=== PATIENT | male | born 1955 | race Caucasian/White ===

== ENCOUNTER 2017-10-22 23:15 | Inpatient (IN) | payer BC ==
[2017-10-22] MEDS ORDERED: SODIUM CHLORIDE 0.9% 1,000 ML IV STA (23:25)
--- NOTE | 2017-10-22 23:35 | ED ---
General Adult HPI - General Chief complaint: Chest Pain Stated complaint: Chest Pain Time Seen by Provider: 10/22/17 23:25 Source: patient, RN notes reviewed, old records reviewed Mode of arrival: wheelchair Limitations: no limitations - History of Present Illness Initial comments: This is a 62 male to the ED co chest pain, patient has strong and significant history of heart disease, history of CAD, recent travel history as he is recently Gen. from [place]. Patient is still complaining of some mild pain, no shortness of breath occasional calf pain. Leg cramping. denies any recent fevers no cough or congestion hospitalization was around 7 days in total. Patient denies current fevers again, no shortness of breath currently no diaphoresis. - Related Data Home Medications Medication Instructions Recorded Confirmed Aspirin 81 mg PO DAILY 10/23/17 10/23/17 Aspirin 81 mg PO DAILY 10/23/17 10/23/17 Aspirin [Adult Low Dose Aspirin EC] 81 mg PO DAILY 10/23/17 10/23/17 Atorvastatin Calcium [Lipitor] 40 mg PO HS 10/23/17 10/23/17 Carvedilol [Coreg] 3.125 mg PO BID 10/23/17 10/23/17 Docusate Sodium [Dok] 100 mg PO BID 10/23/17 10/23/17 Levothyroxine Sodium 25 mcg PO DAILY 10/23/17 10/23/17 Losartan [Cozaar] 50 mg PO DAILY 10/23/17 10/23/17 Melatonin (Unknown Dose) 1 tab PO HS 10/23/17 10/23/17 Multivitamins, Thera [Multivitamin 1 tab PO DAILY 10/23/17 10/23/17 (formulary)] Pantoprazole Sodium 40 mg PO DAILY 10/23/17 10/23/17 Zinc 50 mg PO 5XD 10/23/17 10/23/17 oxyCODONE HCL/ACETAMINOPHEN 1 tab PO Q4HR PRN 10/23/17 10/23/17 [Percocet 10-325 mg] Allergies Allergy/AdvReac Type Severity Reaction Status Date / Time No Known Allergies Allergy Verified 10/22/17 23:23 Review of Systems ROS Statement: Those systems with pertinent positive or pertinent negative responses have been documented in the HPI. ROS Other: All systems not noted in ROS Statement are negative. Past Medical History Past Medical History: Coronary Artery Disease (CAD), Chest Pain / Angina, Myocardial Infarction ([place]) History of Any Multi-Drug Resistant Organisms: None Reported Past Surgical History: Coronary Bypass/CABG Past Psychological History: No Psychological Hx Reported Smoking Status: Current every day smoker Past Alcohol Use History: Rare Past Drug Use History: None Reported General Exam Limitations: no limitations General appearance: alert, in no apparent distress Head exam: Present: atraumatic, normocephalic, normal inspection Eye exam: Present: normal appearance, PERRL, EOMI. Absent: scleral icterus, conjunctival injection, periorbital swelling ENT exam: Present: normal exam, mucous membranes moist Neck exam: Present: normal inspection. Absent: tenderness, meningismus, lymphadenopathy Respiratory exam: Present: normal lung sounds bilaterally. Absent: respiratory distress, wheezes, rales, rhonchi, stridor Cardiovascular Exam: Present: regular rate, normal rhythm, normal heart sounds. Absent: systolic murmur, diastolic murmur, rubs, gallop, clicks GI/Abdominal exam: Present: soft, normal bowel sounds. Absent: distended, tenderness, guarding, rebound, rigid Extremities exam: Present: normal inspection, full ROM, normal capillary refill. Absent: tenderness, pedal edema, joint swelling, calf tenderness Back exam: Present: normal inspection Neurological exam: Present: alert, oriented X3, CN II-XII intact Psychiatric exam: Present: normal affect, normal mood Skin exam: Present: warm, dry, intact, normal color. Absent: rash Course Vital Signs 10/22/17 10/23/17 10/23/17 23:20 01:39 03:57 Temperature 97.9 F Pulse Rate 83 60 59 L Respiratory 20 16 16 Rate Blood Pressure 152/99 160/95 158/100 O2 Sat by Pulse 99 97 99 Oximetry 10/23/17 10/23/17 10/23/17 06:17 06:41 07:45 Temperature Pulse Rate 84 79 Respiratory 17 17 18 Rate Blood Pressure 137/102 134/83 O2 Sat by Pulse 97 97 Oximetry 10/23/17 08:42 Temperature Pulse Rate 77 Respiratory 18 Rate Blood Pressure 133/87 O2 Sat by Pulse 98 Oximetry - Reevaluation(s) Reevaluation #1: 10/23/17 00:18 Patient spoke with at length regarding risk factors of chest pain, patient states his chest pain is improved although does feel similar to his prior stents that were placed Medical records are attempted to be obtained EKG Findings - EKG Comments: EKG Findings:: EKG shows sinus rhythm rate of 65, [place] 120, QRS 86, QTc 422 Medical Decision Making - Medical Decision Making 62 male the ER for evasive chest pain recurrent chest pain despite prior CABG. Patient has elevated troponin, cardiology made aware. Patient be admitted for anticoagulation cardiology evaluation - Lab Data Result diagrams: 10/23/17 06:38 10/22/17 23:36 Lab Results 10/22/17 10/22/17 10/22/17 Range/Units 23:36 23:36 23:36 WBC 9.0 (3.8-10.6) k/uL RBC 4.55 (4.30-5.90) m/uL Hgb 15.5 (13.0-17.5) gm/dL Hct 45.1 (39.0-53.0) % MCV 99.0 (80.0-100.0) fL MCH 34.0 (25.0-35.0) pg MCHC 34.3 (31.0-37.0) g/dL RDW 12.6 (11.5-15.5) % Plt Count 234 (150-450) k/uL Neutrophils % 69 % Lymphocytes % 17 % Monocytes % 9 % Eosinophils % 3 % Basophils % 0 % Neutrophils # 6.3 (1.3-7.7) k/uL Lymphocytes # 1.5 (1.0-4.8) k/uL Monocytes # 0.8 (0-1.0) k/uL Eosinophils # 0.3 (0-0.7) k/uL Basophils # 0.0 (0-0.2) k/uL PT (9.0-12.0) sec INR (<1.2) APTT (22.0-30.0) sec D-Dimer (<0.60) mg/L FEU Sodium 138 (137-145) mmol/L Potassium 4.1 (3.5-5.1) mmol/L Chloride 106 (98-107) mmol/L Carbon Dioxide 23 (22-30) mmol/L Anion Gap 9 mmol/L BUN 8 L (9-20) mg/dL Creatinine 0.60 L (0.66-1.25) mg/dL Est GFR (CKD-EPI)AfAm >90 (>60 ml/min/1.73 sqM) Est GFR (CKD-EPI)NonAf >90 (>60 ml/min/1.73 sqM) Glucose 101 H (74-99) mg/dL Calcium 9.0 (8.4-10.2) mg/dL Magnesium 1.9 (1.6-2.3) mg/dL Total Bilirubin 0.5 (0.2-1.3) mg/dL AST 116 H (17-59) U/L ALT 54 (21-72) U/L Alkaline Phosphatase 115 (38-126) U/L Total Creatine Kinase 577 H (55-170) U/L CK-MB (CK-2) 44.8 H* (0.0-2.4) ng/mL CK-MB (CK-2) Rel Index 7.8 Troponin I 7.060 H* (0.000-0.034) ng/mL NT-Pro-B Natriuret Pep pg/mL Total Protein 6.9 (6.3-8.2) g/dL Albumin 4.1 (3.5-5.0) g/dL Lipase 43 (23-300) U/L 10/22/17 10/22/17 Range/Units 23:36 23:36 WBC (3.8-10.6) k/uL RBC (4.30-5.90) m/uL Hgb (13.0-17.5) gm/dL Hct (39.0-53.0) % MCV (80.0-100.0) fL MCH (25.0-35.0) pg MCHC (31.0-37.0) g/dL RDW (11.5-15.5) % Plt Count (150-450) k/uL Neutrophils % % Lymphocytes % % Monocytes % % Eosinophils % % Basophils % % Neutrophils # (1.3-7.7) k/uL Lymphocytes # (1.0-4.8) k/uL Monocytes # (0-1.0) k/uL Eosinophils # (0-0.7) k/uL Basophils # (0-0.2) k/uL PT 10.3 (9.0-12.0) sec INR 1.1 (<1.2) APTT 25.1 (22.0-30.0) sec D-Dimer 1.03 H (<0.60) mg/L FEU Sodium (137-145) mmol/L Potassium (3.5-5.1) mmol/L Chloride (98-107) mmol/L Carbon Dioxide (22-30) mmol/L Anion Gap mmol/L BUN (9-20) mg/dL Creatinine (0.66-1.25) mg/dL Est GFR (CKD-EPI)AfAm (>60 ml/min/1.73 sqM) Est GFR (CKD-EPI)NonAf (>60 ml/min/1.73 sqM) Glucose (74-99) mg/dL Calcium (8.4-10.2) mg/dL Magnesium (1.6-2.3) mg/dL Total Bilirubin (0.2-1.3) mg/dL AST (17-59) U/L ALT (21-72) U/L Alkaline Phosphatase (38-126) U/L Total Creatine Kinase (55-170) U/L CK-MB (CK-2) (0.0-2.4) ng/mL CK-MB (CK-2) Rel Index Troponin I (0.000-0.034) ng/mL NT-Pro-B Natriuret Pep 1620 pg/mL Total Protein (6.3-8.2) g/dL Albumin (3.5-5.0) g/dL Lipase (23-300) U/L - Radiology Data Radiology results: report reviewed (Chest x-rays negative for acute disease), image reviewed Critical Care Time Critical Care Time: Yes Total Critical Care Time: 31 Disposition Clinical Impression: Chest pain, Acute non-ST segment elevation myocardial infarction (STEMI) following previous myocardial infarction, Elevated troponin Disposition: ADMITTED IP TO THIS HOSP Condition: Serious Is patient prescribed a controlled substance at d/c from ED?: No
[2017-10-22 23:53] LABS: Basophils % (A) 0 %; Eosinophils # (A) 0.3 k/uL (0-0.7); Eosinophils % (A) 3 %; HCT 45.1 % (39.0-53.0); HGB 15.5 gm/dL (13.0-17.5); Lymphocytes # (A) 1.5 k/uL (1.0-4.8); Lymphocytes % (A) 17 %; MCHC 34.3 g/dL (31.0-37.0); Mean Platelet Volume 7.9; Monocytes # (A) 0.8 k/uL (0-1.0); Monocytes % (A) 9 %; Neutrophils # (A) 6.3 k/uL (1.3-7.7); Neutrophils % (A) 69 %; Platelet Count 234 k/uL (150-450); RBC 4.55 m/uL (4.30-5.90); RDW 12.6 % (11.5-15.5)
[2017-10-23 00:05] LABS: INR 1.1 (<1.2); Prothrombin Time 10.3 sec (9.0-12.0)
[2017-10-23 00:06] LABS: Partial Thromboplastin Time 25.1 sec (22.0-30.0)
--- NOTE | 2017-10-23 00:09 | XR ---
EXAMINATION TYPE: XR chest 2V DATE OF EXAM: 10/22/2017 COMPARISON: NONE HISTORY: Chest pain TECHNIQUE: Frontal and lateral views of the chest are obtained. FINDINGS: Heart and mediastinum are normal. Lungs are clear. Diaphragm is normal. There are sternal wires. There are chest leads. Bony thorax is intact. IMPRESSION: Normal chest.
[2017-10-23 00:10] LABS: D-Dimer 1.03 mg/L FEU (<0.60)
[2017-10-23 00:11] LABS: ALT 54 U/L (21-72); AST 116 U/L (17-59); Albumin 4.1 g/dL (3.5-5.0); Alkaline Phosphatase 115 U/L (38-126); Anion Gap 9 mmol/L; Blood Urea Nitrogen 8 mg/dL (9-20); Carbon Dioxide 23 mmol/L (22-30); Chloride 106 mmol/L (98-107); Glucose 101 mg/dL (74-99); Lipase 43 U/L (23-300); Magnesium 1.9 mg/dL (1.6-2.3); Potassium 4.1 mmol/L (3.5-5.1); Sodium 138 mmol/L (137-145); Total Bilirubin 0.5 mg/dL (0.2-1.3); Total Protein 6.9 g/dL (6.3-8.2)
[2017-10-23] MEDS ORDERED: HEPARIN SODIUM,PORCINE 5,000 UNIT/ML 1 ML VIAL IV ONE (00:58)
[2017-10-23] MEDS ORDERED: HEPARIN SODIUM,PORCINE 5,000 UNIT/ML 1 ML VIAL IV PRN (00:58)
[2017-10-23] MEDS ORDERED: NITROGLYCERIN SL TABS 0.4 MG TAB SUBLINGUAL PRN (00:58)
[2017-10-23] MEDS ORDERED: ASPIRIN 81 MG PO STA (00:58)
[2017-10-23 00:59] LABS: Creatine Kinase MB 44.8 ng/mL (0.0-2.4); Troponin I 7.06 ng/mL (0.000-0.034)
[2017-10-23] MEDS ORDERED: HEPARIN SOD,PORK IN 0.45% NACL 25,000 UNIT in 0.45% NACL 1 500ML.BAG IV SCH (01:00)
--- NOTE | 2017-10-23 01:37 | CT ---
EXAMINATION TYPE: CT angio chest DATE OF EXAM: 10/23/2017 1:02 AM COMPARISON: None HISTORY: R/O PE, Chest pain CT DLP: 253.10 mGycm Automated exposure control for dose reduction was used. CONTRAST: CTA scan of the thorax is performed with IV Contrast, patient injected with 90 mL of Isovue 370, pulm onary embolism protocol. There are 3-D post processed images.. FINDINGS: There is mild linear density at the lung bases consistent with subsegmental atelectasis. There is no pleural effusion. Heart appears normal. There is no pericardial effusion. There is aneurysm of ascend ing aorta that measures 4.5 cm. There is normal contrast opacification of the pulmonary arteries. The re are no filling defects. There is no mediastinal adenopathy. Bony thorax appears intact. There are sternal wires. IMPRESSION: SUBSEGMENTAL ATELECTASIS AT THE LUNG BASES. AORTIC ANEURYSM. NO EVIDENCE OF PULMONARY EMBOLISM.
[2017-10-23] MEDS: MORPHINE SULFATE 4 MG/ML SYRINGE IV PRN ×2 (01:40→06:54)
[2017-10-23 06:54] LABS: Platelet Count 229 k/uL (150-450)
[2017-10-23 07:37] LABS: Creatine Kinase MB 41.4 ng/mL (0.0-2.4); Troponin I 9.21 ng/mL (0.000-0.034)
--- NOTE | 2017-10-23 08:27 | P.CRDCN ---
History of Present Illness Consult date: 10/23/17 Requesting physician: Ephraim Mackay Consult reason: non-Q-wave PR Chief complaint: Chest pain History of present illness: This is a 62-year-old gentleman with known history of coronary artery disease, patient had a myocardial infarction several years ago at which time he had 2 stents placed, most recently the patient was in the [facility] at which time he presented to the hospital there with an acute non-ST elevation myocardial infarction. He underwent a cardiac catheterization with subsequent coronary artery bypass grafting surgery 3. Patient underwent a ANGELES to the LAD , saphenous vein graft to the OM, saphenous vein graft to the PDA. Patient does have history of hyperlipidemia and nicotine dependence, he does state that he continued to smoke after his bypass surgery. Otherwise patient is physically active and exercises regularly. 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 Yesterday morning patient states he began to developed severe midsternal chest pressure and heaviness which reminded him of the symptoms he had when he presented to the hospital in [place]. His initial EKG on presentation here showed a normal sinus rhythm with ST-T wave changes noted in the inferior leads, subsequent EKG showed normal sinus rhythm with inferior ST- T wave changes and ST-T wave changes noted in the anterior lateral leads. Chest x-ray is normal. White blood cell count 9.0, hemoglobin 15.5, platelet count 229. D-dimer 1.03. Sodium 138, potassium 4.1, BUN 8, creatinine 0.6. Magnesium 1.9. Troponins 7.06, 9.2. BNP level 1620.. CTA of the chest was performed which was negative for PE. I pressure on arrival here 152/99, heart rate in the 80s, 99% on room air. Blood pressure this morning 134/80 with a heart rate in the 70s, 97% on 2 and oxygen. At the time of my examination this morning patient denies any chest discomfort, he states that he just received morphine approximately a half hour earlier. Past Medical History Past Medical History: Coronary Artery Disease (CAD), Chest Pain / Angina, Myocardial Infarction ([place]) History of Any Multi-Drug Resistant Organisms: None Reported Past Surgical History: Coronary Bypass/CABG Past Psychological History: No Psychological Hx Reported Smoking Status: Current every day smoker Past Alcohol Use History: Rare Past Drug Use History: None Reported Medications and Allergies Home Medications Medication Instructions Recorded Confirmed Type Aspirin [Adult Low Dose Aspirin EC] 81 mg PO DAILY 10/23/17 10/23/17 History Atorvastatin Calcium [Lipitor] 40 mg PO HS 10/23/17 10/23/17 History Carvedilol [Coreg] 3.125 mg PO BID 10/23/17 10/23/17 History Docusate Sodium [Dok] 100 mg PO BID 10/23/17 10/23/17 History Levothyroxine Sodium 25 mcg PO DAILY 10/23/17 10/23/17 History Melatonin (Unknown Dose) 1 tab PO HS 10/23/17 10/23/17 History Multivitamins, Thera [Multivitamin 1 tab PO DAILY 10/23/17 10/23/17 History (formulary)] Pantoprazole Sodium 40 mg PO DAILY 10/23/17 10/23/17 History Zinc 50 mg PO 5XD 10/23/17 10/23/17 History oxyCODONE HCL/ACETAMINOPHEN 1 tab PO Q4HR PRN 10/23/17 10/23/17 History [Percocet 10-325 mg] Allergies Allergy/AdvReac Type Severity Reaction Status Date / Time No Known Allergies Allergy Verified 10/22/17 23:23 Physical Exam Vitals: Vital Signs Temp Pulse Resp BP Pulse Ox 10/23/17 07:45 79 18 134/83 97 10/23/17 06:41 17 10/23/17 06:17 84 17 137/102 97 10/23/17 03:57 59 L 16 158/100 99 10/23/17 01:39 60 16 160/95 97 10/22/17 23:20 97.9 F 83 20 152/99 99 Intake and Output 10/22/17 10/23/17 10/23/17 22:59 06:59 14:59 Other: Weight 68.039 kg PHYSICAL EXAMINATION: GENERAL: 62-year-old gentleman in no acute distress at the time of my examination HEENT: Head is atraumatic, normocephalic. Pupils equal, round. Sclera anicteric. Conjunctiva are clear. Mucous membranes of the mouth are moist. Neck is supple. There is no elevated jugular venous pressure. No carotid bruit is heard. HEART EXAMINATION: Heart S1, S2 normal. No murmur or gallop heard. CHEST EXAMINATION: Lungs are clear to auscultation and precussion. No chest wall tenderness is noted on palpation or with deep breathing. ABDOMEN: Soft, nontender. Bowel sounds are heard. No organomegaly noted. EXTREMITIES: 2+ peripheral pulses with no evidence of peripheral edema and no calf tenderness noted. NEUROLOGIC patient is awake, alert and oriented ?-3. . Results 10/23/17 06:38 10/22/17 23:36 Cardiac Enzymes 10/22/17 10/22/17 10/23/17 Range/Units 23:36 23:36 06:38 AST 116 H (17-59) U/L CK-MB (CK-2) 44.8 H* 41.4 H* (0.0-2.4) ng/mL Troponin I 7.060 H* 9.210 H* (0.000-0.034) ng/mL Coagulation 10/22/17 10/23/17 Range/Units 23:36 06:38 PT 10.3 (9.0-12.0) sec APTT 25.1 35.8 H (22.0-30.0) sec CBC 10/22/17 10/23/17 Range/Units 23:36 06:38 WBC 9.0 (3.8-10.6) k/uL RBC 4.55 (4.30-5.90) m/uL Hgb 15.5 (13.0-17.5) gm/dL Hct 45.1 (39.0-53.0) % Plt Count 234 229 (150-450) k/uL Comprehensive Metabolic Panel 10/22/17 Range/Units 23:36 Sodium 138 (137-145) mmol/L Potassium 4.1 (3.5-5.1) mmol/L Chloride 106 (98-107) mmol/L Carbon Dioxide 23 (22-30) mmol/L BUN 8 L (9-20) mg/dL Creatinine 0.60 L (0.66-1.25) mg/dL Glucose 101 H (74-99) mg/dL Calcium 9.0 (8.4-10.2) mg/dL AST 116 H (17-59) U/L ALT 54 (21-72) U/L Alkaline Phosphatase 115 (38-126) U/L Total Protein 6.9 (6.3-8.2) g/dL Albumin 4.1 (3.5-5.0) g/dL Current Medications Generic Name Dose Route Start Last Admin Trade Name Tracie PRN Reason Stop Dose Admin Aspirin 325 mg 10/24/17 09:00 Aspirin PO DAILY [facility] Atorvastatin Calcium 80 mg 10/23/17 09:00 Lipitor PO DAILY [facility] Heparin Sodium (Porcine) 0 unit 10/23/17 00:58 Heparin IV Q6HR PRN Low PTT Protocol Sodium Chloride 1,000 mls @ 100 mls/hr 10/22/17 23:25 10/22/17 23:40 Saline 0.9% IV 10/23/17 09:24 100 mls/hr .Q10H STA Administration Heparin Sodium/Sodium Chloride 500 mls @ 16.32 mls/hr 10/23/17 01:00 01:34 25,000 unit/ Sodium Chloride IV 12 units/kg/hr .Q24H ADRIEN 16.32 mls/hr Administration Protocol 12 UNITS/KG/HR Metoprolol Tartrate 25 mg 10/23/17 09:00 Lopressor PO BID [facility] Morphine Sulfate 4 mg 10/23/17 00:58 10/23/17 06:54 Morphine Sulfate (Inj) IV 4 mg Q5M PRN Administration Chest Pain Nitroglycerin 0.4 mg 10/23/17 00:58 Nitrostat SUBLINGUAL Q5M PRN Chest Pain Intake and Output 10/22/17 10/23/17 10/23/17 22:59 06:59 14:59 Other: Weight 68.039 kg 10/23/17 06:38 10/22/17 23:36 EKG Interpretations (text) Initial EKG shows a normal sinus rhythm with ST-T wave changes noted in the inferior leads, subsequent EKG shows normal sinus rhythm with ST-T wave changes in the inferior and lateral leads. Assessment and Plan Plan: Assessment and plan #1 non-ST elevation myocardial infarction #2 known history of coronary artery disease with prior myocardial infarction several years ago at which time patient underwent 2 stent placements, most recently patient had a myocardial infarction last month at which time he underwent coronary artery bypass grafting surgery with a ANGELES to the LAD, saphenous vein graft to the OM, saphenous vein graft to the PDA. #3 nicotine dependence #4 hyperlipidemia #5 hypertension Plan We will obtain a stat echocardiogram with Doppler study. We will put the patient on Lipitor 80 mg now and daily, continue aspirin, IV heparin, metoprolol. Patient has been advised to undergo urgent Cardiac catheterization. The risks and benefits were again explained to the patient in detail and he is willing to proceed. Further recommendations will be based on these findings and the patient's clinical course. DNP note has been reviewed, I agree with a documented findings and plan of care. Patient was seen and examined.
[2017-10-23] MEDS: ATORVASTATIN 80 MG TAB PO SCH (08:38)
[2017-10-23] MEDS: METOPROLOL TARTRATE 25 MG TAB PO SCH ×2 (08:38→21:19)
[2017-10-23] MEDS ORDERED: IV FLUID CONTINUATION 1,000 ML IV ONE (08:56)
[2017-10-23] MEDS ORDERED: ASPIRIN 325 MG TAB PO SCH (09:00)
[2017-10-23] MEDS ORDERED: fentaNYL (PF) 50 MCG/ML 2 ML AMP ONE (09:03)
[2017-10-23] MEDS ORDERED: MIDAZOLAM 2 MG/2 ML VIAL ONE (09:03)
[2017-10-23] MEDS ORDERED: MIDAZOLAM 2 MG/2 ML VIAL IV ONE (09:08)
[2017-10-23] MEDS ORDERED: fentaNYL (PF) 50 MCG/ML 2 ML AMP IV ONE (09:08)
[2017-10-23] MEDS ORDERED: LIDOCAINE 1% INJ 10MG/ML (20 ML MDV) SQ ONE (09:13)
[2017-10-23] MEDS ORDERED: IOPAMIDOL-370 125ML BTL INJ ONE (09:51)
[2017-10-23] MEDS ORDERED: IOPAMIDOL-370 100ML BTL INJ ONE (10:05)
[2017-10-23] MEDS: SODIUM CHLORIDE 0.9% 1,000 ML IV SCH (10:25)
--- NOTE | 2017-10-23 10:37 | CC ---
CARDIAC CATHETERIZATION REPORT Mr. Carreon is a 62-year-old gentleman who came to the hospital with chest pain. Patient had inferior lateral T-wave inversions. Initial troponin was 7, second troponin was 9 suggestive of a non-Q-wave myocardial infarction. This patient had a recent coronary artery bypass surgery in [place]. Patient had a ANGELES graft to the LAD and vein graft to OM and the right coronary artery. In view of the non-Q-wave myocardial infarction, patient was recommended to have a cardiac catheterization for definitive diagnosis. PROCEDURE: Right groin was prepped and draped in the usual manner and the skin was infiltrated with 2% Xylocaine. The right femoral artery was entered using Seldinger technique, a #6- [place] sheath was placed in. Selective coronary angiography was then performed in multiple projections and the left ventricular pressures were obtained. Patient tolerated the procedure well. Sheath was sutured. Moderate sedation was used, total sedation time was 38 minutes. HEMODYNAMICS: Left ventricular end-diastolic pressure is 12 mmHg prior to angiography. No gradient is noted across the aortic valve. SELECTIVE CORONARY ANGIOGRAPHY: Left main coronary artery has a distal stenosis of 80%. LAD is a good caliber blood vessel and gives rise to several septal branches. The mid LAD has an area of 80% stenosis. The distal LAD is totally occluded with competitive flow noted in the distal LAD. There are two good-sized diagonal branches arising from the proximal portion of the LAD. The circumflex coronary artery is a good caliber blood vessel and uses a small size obtuse marginal branch. The small size obtuse marginal branch is totally occluded and then the circumflex continues into the AV groove. Right coronary artery is totally occluded in its mid portion. There is a feeling of distal right coronary artery via collaterals from the LAD. The ANGELES graft to the distal LAD is patent. There is no evidence of any retrograde flow into the proximal or mid LAD. The saphenous vein graft to the obtuse marginal branch is occluded. Saphenous vein graft to the right coronary artery is patent with sluggish flow and there is filling of the PDA branch. RECOMMENDATIONS: We will review the films with Dr. Reyna Carmen and consider possible stent to the distal left main. It is considered to be technically high-risk angioplasty. This was discussed with the patient. MMODL / IJN: [id number] /
--- NOTE | 2017-10-23 11:31 | ECHOF ---
Referral Reason:elevTrop MEASUREMENTS -------- HEIGHT: 165.1 cm WEIGHT: 68.0 kg BP: 137/102 RVIDd: 2.9 cm (< 3.3) IVSd: 1.3 cm (0.6 - 1.1) LVIDd: 4.2 cm (3.9 - 5.3) LVPWd: 1.4 cm (0.6 - 1.1) IVSs: 1.7 cm LVIDs: 3.5 cm LVPWs: 1.4 cm LA Diam: 2.9 cm (2.7 - 3.8) LAESV Index (A-L): 27.26 ml/m Ao Diam: 3.9 cm (2.0 - 3.7) AV Cusp: 2.0 cm (1.5 - 2.6) LA Diam: 3.8 cm (2.7 - 3.8) MV EXCURSION: 15.294 mm (> 18.000) MV EF SLOPE: 52 mm/s (70 - 150) EPSS: 0.5 cm MV E Ventura: 0.39 m/s MV DecT: 289 ms MV A [place]: 0.54 m/s MV E/A Ratio: 0.72 RAP: 5.00 mmHg RVSP: 16.46 mmHg FINDINGS -------- Sinus rhythm. This was a technically adequate study. The left ventricular size is normal. There is mild concentric left ventricular hypertrophy. Overa ll left ventricular systolic function is moderately impaired with, an EF between 35 - 40 %. Apical septum LV wall motion is hypokinetic. Fowler Hypokinesis. The right ventricle is normal in size. The left atrial size is normal. The right atrial size is normal. The aortic valve is trileaflet, and appears structurally normal. No aortic stenosis or regurgitation. Mild mitral annular calcification present. Mild mitral regurgitation is present. Mild tricuspid regurgitation present. There is no evidence of pulmonary hypertension. The right v entricular systolic pressure, as measured by Doppler, is 16.46mmHg. There is no pulmonic regurgitation present. The aortic root size is normal. There is no pericardial effusion. CONCLUSIONS -------- 1. The left ventricular size is normal. 2. There is mild concentric left ventricular hypertrophy. 3. Overall left ventricular systolic function is moderately impaired with, an EF between 35 - 40 %. 4. Apical septum LV wall motion is hypokinetic. 5. Fowler Hypokinesis. 6. The right ventricle is normal in size. 7. The left atrial size is normal. 8. The right atrial size is normal. 9. The aortic valve is trileaflet, and appears structurally normal. No aortic stenosis or regurgitati on. 10. Mild mitral annular calcification present. 11. Mild mitral regurgitation is present. 12. Mild tricuspid regurgitation present. 13. There is no evidence of pulmonary hypertension. 14. The right ventricular systolic pressure, as measured by Doppler, is 16.46mmHg. 15. There is no pulmonic regurgitation present. 16. The aortic root size is normal. 17. There is no pericardial effusion. STRAP CUTTING MACHINE OPERATOR: Vivian Ibarra RDCS
[2017-10-23 12:17] LABS: Troponin I 9.51 ng/mL (0.000-0.034)
--- NOTE | 2017-10-23 12:58 | PN ---
PROGRESS NOTE This is a 62-year-old gentleman who underwent aortocoronary bypass surgery in September of this year in [place]. Prior to that, he had a stenting performed of the RCA a few years ago. The patient still smokes and does consume alcohol on a regular basis. He presented here with chest pain and had a non-ST elevation CT. Cardiac cath Dr. Melissa Funk revealed that his ANGELES to LAD was patent, but there was only antegrade flow in the ANGELES and it was not filling 2 major diagonal branches. The patient has a 70% to 80% left main calcified lesion. The RCA is totally occluded. The PDA branch of RCA has been grafted and the graft appears to be patent. The patient has a vein graft to the obtuse marginal that is occluded but the [place] obtuse marginal appears to be relatively small vessel. His ejection fraction is about 35% to 40% with anterior hypokinesia in the LAD distribution. This patient has a high-risk feature with decreased LV function and multivessel disease including left main disease, although there is partial protection to the left main with a distal LAD being grafted. I am recommending that we will not do any intervention of the vein graft to the obtuse marginal, but instead he will need a left main stenting which because the 2 diagonal branches and the circumflex is now compromised in terms of myocardial perfusion given the 70% or 80% distal left main lesion that is calcified. I explained this to the patient in great detail with his neighbor being present there. I suggested that we will do a bifurcation stenting either a provisional stenting or a crush procedure. He will need 2 stents both in LAD and circumflex probably as well. I will perform the procedure with an Impella support and this will be performed on at 10:30 am. The rationale involved high risk, options were explained to the patient in great detail. He understands all details and wishes to proceed. I have counseled him regarding the need to refrain from smoking and we will add losartan 50 mg daily to his regimen and continue all his other medications. Prognosis remains guarded. The patient has been counseled regarding the need to quit smoking. He is fully aware of the risk of infection, bleeding, vascular injury, abrupt re-closure, and possibility of as well as the higher risk related to a vascular access from the Impella placement. Patient understands all details and wishes to proceed with the procedure. MMODL / IJN: [id number] /
[2017-10-23] MEDS ORDERED: HYDROcodone/APAP 5-325MG 1 EACH TAB PO PRN (15:04)
[2017-10-23] MEDS ORDERED: HYDROcodone/APAP 5-325MG 1 EACH TAB ONE (15:05)
[2017-10-23 18:10] LABS: Glucose,Whole Blood 116 mg/dL (75-99)
[2017-10-23] MEDS: LOSARTAN 50 MG TAB PO SCH (21:18)
[2017-10-23] MEDS: ENOXAPARIN 80 MG/0.8 ML SYRINGE SQ SCH (21:18)
--- NOTE | 2017-10-23 23:16 | P.HPIM ---
History of Present Illness H&P Date: 10/23/17 Chief Complaint: Chest pain Patient is a 62-year-old male with a known history of smoking and coronary artery disease with stent placement about [address]. Cardiac catheterization showed triple-vessel disease and patient is status post coronary artery bypass graft done on September 2017 at [place], [place]. Patient drove back to [place] on last . Patient developed chest pain again yesterday morning and seems like similar chest heaviness when he presented to hospital in [place]. Patient came to ER for further evaluation. Denied any associated nausea or vomiting. Patient does have shortness of breath associated with chest pain. Denied any radiation. No headache or dizziness. Patient did have diaphoresis otherwise. EKG showed normal sinus rhythm with ST-T wave changes noted in the inferior leads. Chest x-ray showed no acute cardiopulmonary process. D-dimer 1.03. CT angiogram of the chest showed no evidence of pulmonary embolism. Troponin 7.060 Patient continues to smoke otherwise. He was seen by cardiology and was taken to cardiac catheterization. Review of Systems Constitutional: Patient denies any fever or chills . No generalized weakness or weight loss. Abdomen: Patient denied nausea vomiting and diarrhea and abdominal pain. Cardiovascular: Patient does have chest pain and short of breath no palpitations. Respiratory: patient denied any cough is from production. No shortness of breath Neurologic: Patient denied any numbness or tingling headache. Musculoskeletal: Patient denies any complaints of joint swelling or deformity. Skin: Negative Psychiatric: Negative Endocrine: No heat or cold intolerance. No recent weight gain. Genitourinary: No dysuria or hematuria. All other 14 point ROS negative except the above Past Medical History Past Medical History: Coronary Artery Disease (CAD), Chest Pain / Angina, Myocardial Infarction (CT) History of Any Multi-Drug Resistant Organisms: None Reported Past Surgical History: Coronary Bypass/CABG Past Psychological History: No Psychological Hx Reported Smoking Status: Current every day smoker Past Alcohol Use History: Rare Past Drug Use History: None Reported Medications and Allergies Home Medications Medication Instructions Recorded Confirmed Type Aspirin 81 mg PO DAILY 10/23/17 10/23/17 History Aspirin 81 mg PO DAILY 10/23/17 10/23/17 History Aspirin [Adult Low Dose Aspirin EC] 81 mg PO DAILY 10/23/17 10/23/17 History Atorvastatin Calcium [Lipitor] 40 mg PO HS 10/23/17 10/23/17 History Carvedilol [Coreg] 3.125 mg PO BID 10/23/17 10/23/17 History Docusate Sodium [Dok] 100 mg PO BID 10/23/17 10/23/17 History Levothyroxine Sodium 25 mcg PO DAILY 10/23/17 10/23/17 History Losartan [Cozaar] 50 mg PO DAILY 10/23/17 10/23/17 History Melatonin (Unknown Dose) 1 tab PO HS 10/23/17 10/23/17 History Multivitamins, Thera [Multivitamin 1 tab PO DAILY 10/23/17 10/23/17 History (formulary)] Pantoprazole Sodium 40 mg PO DAILY 10/23/17 10/23/17 History Zinc 50 mg PO 5XD 10/23/17 10/23/17 History oxyCODONE HCL/ACETAMINOPHEN 1 tab PO Q4HR PRN 10/23/17 10/23/17 History [Percocet 10-325 mg] Allergies Allergy/AdvReac Type Severity Reaction Status Date / Time No Known Allergies Allergy Verified 10/22/17 23:23 Physical Exam Vitals: Vital Signs Temp Pulse Pulse Resp BP BP Pulse Ox 10/23/17 10:54 55 L 18 146/77 99 10/23/17 08:42 77 18 133/87 98 10/23/17 07:45 79 18 134/83 97 10/23/17 06:41 17 10/23/17 06:17 84 17 137/102 97 10/23/17 03:57 59 L 16 158/100 99 10/23/17 01:39 60 16 160/95 97 10/22/17 23:20 97.9 F 83 20 152/99 99 Intake and Output 10/22/17 10/23/17 10/23/17 22:59 06:59 14:59 Intake Total 100 Output Total 300 Balance -200 Intake: IV 100 Sodium Chloride 0.9% 1, 0 000 ml @ 100 mls/hr IV . Q10H STA Rx#:[id number] Output: Urine 300 Other: Weight 68.039 kg PHYSICAL EXAMINATION: Patient is lying in the bed comfortably, no acute distress, awake alert and oriented.. HEENT: Normocephalic. Neck is supple. Pupils reactive. Nostrils clear. Oral cavity is moist. Ears reveal no drainage. Neck reveals no JVD, carotid bruits, or thyromegaly. CHEST EXAMINATION: Trachea is central. Symmetrical expansion. Lung camp clear to auscultation and percussion. CARDIAC: Normal S1, S2 with no gallops. No murmurs ABDOMEN: Soft. Bowel sounds normal. No organomegaly. No abdominal bruits. Extremities: reveal no edema. No clubbing or cyanosis Neurologically awake, alert, oriented x3 with well-coordinated movements. No focal deficits noted Skin: No rash or skin lesions. Psychiatric: Coperative. Nonsuicidal Musculoskeletal: No joint swelling or deformity. Normal range of motion. Results CBC & Chem 7: 10/23/17 06:38 10/22/17 23:36 Labs: Abnormal Lab Results - Last 24 Hours (Table) 10/22/17 10/22/17 10/22/17 Range/Units 23:36 23:36 23:36 APTT (22.0-30.0) sec D-Dimer 1.03 H (<0.60) mg/L FEU BUN 8 L (9-20) mg/dL Creatinine 0.60 L (0.66-1.25) mg/dL Glucose 101 H (74-99) mg/dL AST 116 H (17-59) U/L Total Creatine Kinase 577 H (55-170) U/L CK-MB (CK-2) 44.8 H* (0.0-2.4) ng/mL Troponin I 7.060 H* (0.000-0.034) ng/mL 10/23/17 10/23/17 Range/Units 06:38 06:38 APTT 35.8 H (22.0-30.0) sec D-Dimer (<0.60) mg/L FEU BUN (9-20) mg/dL Creatinine (0.66-1.25) mg/dL Glucose (74-99) mg/dL AST (17-59) U/L Total Creatine Kinase 427 H (55-170) U/L CK-MB (CK-2) 41.4 H* (0.0-2.4) ng/mL Troponin I 9.210 H* (0.000-0.034) ng/mL Thrombosis Risk Factor Assmnt - DVT/VTE Prophylaxis DVT/VTE Prophylaxis: Pharmacologic Prophylaxis ordered Assessment and Plan Assessment: Acute non-ST elevated CT Chest pain Recent CT status post coronary artery bypass graft in September 2017 History of coronary artery disease with stent placement 8 years ago Hypertension Hyperlipidemia and nicotine dependence Plan: Patient was started on heparin drip. Continue with aspirin, statins and metoprolol. Patient underwent cardiac catheterization and report is pending at this time. 2-D echocardiogram was ordered. Further recommendations based on the critical course. Continue with telemetry monitoring. Time with Patient: Greater than 30
[2017-10-24] MEDS: SODIUM CHLORIDE 0.9% 1,000 ML IV SCH ×2 (02:00→09:41)
[2017-10-24 05:38] LABS: Basophils % (A) 0 %; Eosinophils # (A) 0.1 k/uL (0-0.7); Eosinophils % (A) 1 %; HCT 42.4 % (39.0-53.0); HGB 14.4 gm/dL (13.0-17.5); Lymphocytes # (A) 1.4 k/uL (1.0-4.8); Lymphocytes % (A) 15 %; MCH 33.8 pg (25.0-35.0); MCV 99.5 fL (80.0-100.0); Mean Platelet Volume 7.8; Monocytes # (A) 0.8 k/uL (0-1.0); Monocytes % (A) 9 %; Neutrophils # (A) 6.6 k/uL (1.3-7.7); Neutrophils % (A) 73 %; Platelet Count 194 k/uL (150-450); RBC 4.26 m/uL (4.30-5.90); RDW 12.6 % (11.5-15.5)
[2017-10-24 05:54] LABS: Anion Gap 6 mmol/L; Blood Urea Nitrogen 11 mg/dL (9-20); Calcium 8.5 mg/dL (8.4-10.2); Carbon Dioxide 24 mmol/L (22-30); Chloride 104 mmol/L (98-107); Cholesterol 98 mg/dL (<200); Glucose 98 mg/dL (74-99); HDL Cholesterol 33 mg/dL (40-60); LDL Cholesterol,Calculated 53 mg/dL (0-99); Magnesium 1.9 mg/dL (1.6-2.3); Potassium 4.3 mmol/L (3.5-5.1); Sodium 134 mmol/L (137-145); Triglycerides 62 mg/dL (<150)
[2017-10-24 07:05] VITALS: BMI 24.6
[2017-10-24] MEDS ORDERED: ASPIRIN 81 MG PO SCH (09:00)
[2017-10-24] MEDS ORDERED: ASPIRIN 325 MG TAB PO SCH (09:00)
[2017-10-24 09:23] VITALS: TEMP 98.4
[2017-10-24] MEDS: LOSARTAN 50 MG TAB PO SCH (09:41)
[2017-10-24] MEDS: ENOXAPARIN 80 MG/0.8 ML SYRINGE SQ SCH (09:41)
[2017-10-24] MEDS: ATORVASTATIN 80 MG TAB PO SCH (09:41)
[2017-10-24] MEDS: METOPROLOL TARTRATE 25 MG TAB PO SCH (09:42)
[2017-10-24 16:07] VITALS: BP 99/63; PULSE 78; RESP 16
--- NOTE | 2017-10-24 19:50 | PN ---
PROGRESS NOTE This patient was admitted with acute non ST-segment elevation myocardial infarction. Patient is status post coronary artery bypass surgery. The patient was found to have a saphenous vein graft to the obtuse marginal branch closed. Patient has an about 80% distal left main stenosis which requires stenting. Discussed with the patient. Patient wishes to be transferred to the tertiary care center. In view of the complex and high risk angioplasty, we will make arrangements for patient to be transferred to the [facility]. MMMIGUE / CARYN: [id number] /
== END 2017-10-24 16:41 | disposition short-term general hospital (02) | DRG 281 ==
LOC: EC 23:15 → 6ICU 10-23 01:00 → 6SEL 10-23 01:20 → 6ICU 10-23 10:18
PROVIDERS: ADMIT Hospitalist; ATTEND Hospitalist
PROC: B2131ZZ Fluoroscopy of Multiple Coronary Artery Bypass Grafts using Low Osmolar Contrast (ICD-10-PCS; 2017-10-23)
PROC: B2181ZZ Fluoroscopy of Left Internal Mammary Bypass Graft using Low Osmolar Contrast (ICD-10-PCS; 2017-10-23)
PROC: B2111ZZ Fluoroscopy of Multiple Coronary Arteries using Low Osmolar Contrast (ICD-10-PCS; 2017-10-23)
PROC: 4A023N7 Measurement of Cardiac Sampling and Pressure, Left Heart, Percutaneous Approach (ICD-10-PCS; principal; 2017-10-23 08:50)
DX: I21.4 Non-ST elevation (NSTEMI) myocardial infarction (principal); I25.810 Atherosclerosis of coronary artery bypass graft(s) without angina pectoris; E78.5 Hyperlipidemia, unspecified; F17.210 Nicotine dependence, cigarettes, uncomplicated; I10 Essential (primary) hypertension; I25.2 Old myocardial infarction; Z79.82 Long term (current) use of aspirin; Z79.899 Other long term (current) drug therapy; Z79.890 Hormone replacement therapy; Z95.1 Presence of aortocoronary bypass graft; Z95.5 Presence of coronary angioplasty implant and graft
CPT/HCPCS: 36415; 71046; 71275; 80048; 80053; 80061; 82550; 82553; 83690; 83735; 83880; 84484; 85025; 85049; 85379; 85610; 85730; 93005; 93306; 93459; 96361; 96365; 96366; 96375; 96376; 99291

== ENCOUNTER → 2018-02-01 | Outpatient (CLI) | payer BC ==
--- NOTE | 2018-02-01 10:59 | CT ---
EXAMINATION TYPE: CT angio chest DATE OF EXAM: 02/01/2018 COMPARISON: 10/23/2017 HISTORY: Follow up AAA CT DLP: 428.3 mGycm. Automated Exposure Control for Dose Reduction was Utilized. CONTRAST: CTA scan of the thorax is performed without and with IV Contrast, patient injected with 100 mL of Iso justine 370, pulmonary embolism protocol. 3-D and MIP Images are created on CT scanner and reviewed. FINDINGS: LUNGS: Degree of left basilar peripheral atelectasis has improved in the interim with two 3 mm nodule s remaining at the left lung base on series 6 image 55 and 54. There is minimal bibasilar subsegmenta l dependent atelectasis is also seen. Probable elongated left intrafissural lymph node is seen on ser ies 7 image 36.. There is no pleural effusion or pneumothorax seen. The tracheobronchial tree is p atent. MEDIASTINUM: There is satisfactory enhancement of the pulmonary artery and its branches, there is no CT evidence for pulmonary embolism. There are no greater than 1 cm hilar or mediastinal lymph nodes. Post CABG changes are seen of the chest with [place] coronary calcifications also present. No pericar dial effusion is seen. Heart is upper limits of normal in size. OTHER: 1.2 cm right upper pole renal cyst is identified. Descending duodenal diverticulum is also pre sent. Splenules are seen adjacent to the [place] splenic hilum. Minimal multilevel degenerative change s of the thoracic spine are seen. Moderate calcific atheromatous plaquing of the thoracic aorta and m oderate to severe calcific and noncalcific plaquing of the visualized superior portion of the abdomin al aorta are noted. IMPRESSION: 1. The previously seen ascending thoracic aortic aneurysmal dilatation may have related to obliquity on the prior exam and not redemonstrated on today's examination. Greatest caliber of the ascending th oracic aorta measures up to 3.8 cm, within normal limits and aortic root measures up to 3.6 cm, also within normal limits. No enlargement of the main pulmonary artery or descending thoracic aorta is see n. 2. Improved degree of left basilar atelectasis with two underlying 3 mm pulmonary nodules now seen. F ollow-up CT thorax is recommended in 12 months to assess for stability and nodules of this size.
== END | disposition home or self-care (01) ==
LOC: RADCTMAIN 07:23
PROVIDERS: ATTEND Internal Medicine Cardiovascular Disease
DX: J98.11 Atelectasis (principal); R91.8 Other nonspecific abnormal finding of lung field
CPT/HCPCS: 71275; Q9967

== ENCOUNTER 2019-06-08 10:19 | Emergency (ER) | payer BC, MEDICARE ==
--- NOTE | 2019-06-08 10:47 | XR ---
EXAMINATION TYPE: XR chest 1V portable DATE OF EXAM: 06/08/2019 HISTORY: cough. REFERENCE: Previous study dated 10/22/2017. FINDINGS: There has been a midline sternotomy. Lung volumes are prominent. The heart is mildly enlarged. The lungs are clear. Pleural space are pelon r. IMPRESSION: 1. COPD. 2. CARDIOMEGALY.
--- NOTE | 2019-06-08 10:56 | ED ---
General Adult HPI - General Chief complaint: Shortness of Breath Stated complaint: SOB Time Seen by Provider: 06/08/19 10:29 Source: patient Mode of arrival: ambulatory Limitations: no limitations - History of Present Illness Initial comments: Dictation was produced using [employer] dictation software. please excuse any grammatical, word or spelling errors. Chief Complaint: 64-year-old male past medical history of coronary artery disease, cardiac bypass, myocardial infarction presents with chest pain sinus pressure and cough. History of Present Illness: 64-year-old male presents with chest pain shortness of breath and cough. Patient states his symptoms began yesterday. Does complain of anterior pleuritic chest pain. States that his pain is severe when he takes a deep breath. Denies any radiation of symptoms. He states his pain is not severe. Patient is history of coronary artery disease status post bypass grafting and stent placement. Denies any fever, chills or night sweats. He does have a mild cough that is dry and nonproductive. Denies any constitutional symptoms. The ROS documented in this emergency department record has been reviewed and confirmed by me. Those systems with pertinent positive or negative responses have been documented in the HPI. All other systems are other negative and/or noncontributory. PHYSICAL EXAM: General Impression: Alert and oriented x3, not in acute distress HEENT: Normocephalic atraumatic, extra-ocular movements intact, pupils equal and reactive to light bilaterally, mucous membranes moist. Cardiovascular: Heart regular rate and rhythm, S1&S2 audible, no murmurs, rubs or gallops Chest: No acute respiratory distress, no retractions, able to complete full sentences Abdomen: Bowel sounds present, abdomen soft, non-tender, non-distended, no organomegaly Musculoskeletal: Pulses present and equal in all extremities, no peripheral edema Motor: no focal deficits noted Neurological: CN II-XII grossly intact, no focal motor or sensory deficits noted Skin: Intact with no visualized rashes Psych: Normal affect and mood ED course: 64-year-old male presents with atypical chest pain. He also has component of respiratory symptoms. Vital signs upon arrival are within a cceptable limits. Laboratory evaluation obtained. CBC unremarkable. D-dimer 0.31. Metabolic panel is negative. Chest x-ray shows no acute processes. Patient's pain is atypical. No concern for ACS. Patient is worried about Covid 19. Discussed with patient that our administration does not want us performing Covid 19 testing on stable patient's. He is stable for discharge. He does not show any signs of respiratory distress or fever. Return parameters discussed. Patient advised to follow-up with his primary care physician. Patient is instructed to quarantine for 14 days. EKG interpretation: Ventricular rate 70, normal sinus rhythm,. Interval 134, QRS 90, QTC 421. No CA prolongation, no QTC prolongation, no ST or T-wave changes noted. EKG compared to 10/23/2017 showing no changes. Overall, this EKG is unremarkable - Related Data Home Medications Medication Instructions Recorded Confirmed Aspirin 81 mg PO DAILY 10/23/17 10/23/17 Aspirin 81 mg PO DAILY 10/23/17 10/23/17 Aspirin [Adult Low Dose Aspirin EC] 81 mg PO DAILY 10/23/17 10/23/17 Atorvastatin Calcium [Lipitor] 40 mg PO HS 10/23/17 10/23/17 Carvedilol [Coreg] 3.125 mg PO BID 10/23/17 10/23/17 Docusate Sodium [Dok] 100 mg PO BID 10/23/17 10/23/17 Levothyroxine Sodium 25 mcg PO DAILY 10/23/17 10/23/17 Losartan [Cozaar] 50 mg PO DAILY 10/23/17 10/23/17 Melatonin (Unknown Dose) 1 tab PO HS 10/23/17 10/23/17 Multivitamins, Thera [Multivitamin 1 tab PO DAILY 10/23/17 10/23/17 (formulary)] Pantoprazole Sodium 40 mg PO DAILY 10/23/17 10/23/17 Zinc 50 mg PO 5XD 10/23/17 10/23/17 oxyCODONE HCL/ACETAMINOPHEN 1 tab PO Q4HR PRN 10/23/17 10/23/17 [Percocet 10-325 mg] Allergies Allergy/AdvReac Type Severity Reaction Status Date / Time No Known Allergies Allergy Verified 10/22/17 23:23 Review of Systems ROS Statement: Those systems with pertinent positive or pertinent negative responses have been documented in the HPI. ROS Other: All systems not noted in ROS Statement are negative. Past Medical History Past Medical History: Coronary Artery Disease (CAD), Chest Pain / Angina, Myocardial Infarction ([place]) Last Myocardial Infarction Date:: 10/23/17 History of Any Multi-Drug Resistant Organisms: None Reported Past Surgical History: Coronary Bypass/CABG, Heart Catheterization With Stent Past Psychological History: No Psychological Hx Reported Smoking Status: Current every day smoker Past Alcohol Use History: Rare Past Drug Use History: None Reported General Exam Limitations: no limitations Course Vital Signs 06/08/19 06/08/19 10:24 10:26 Temperature 98.7 F Pulse Rate 89 Respiratory 18 20 Rate Blood Pressure 165/95 O2 Sat by Pulse 100 Oximetry Medical Decision Making - Lab Data Result diagrams: 06/08/19 10:57 06/08/19 10:57 Lab Results 06/08/19 06/08/19 06/08/19 Range/Units 10:57 10:57 10:57 WBC 10.4 (3.8-10.6) k/uL RBC 4.17 L (4.30-5.90) m/uL Hgb 14.5 (13.0-17.5) gm/dL Hct 42.6 (39.0-53.0) % MCV 102.3 H (80.0-100.0) fL MCH 34.7 (25.0-35.0) pg MCHC 33.9 (31.0-37.0) g/dL RDW 11.8 (11.5-15.5) % Plt Count 156 (150-450) k/uL Neutrophils % 74 % Lymphocytes % 14 % Monocytes % 8 % Eosinophils % 2 % Basophils % 0 % Neutrophils # 7.7 (1.3-7.7) k/uL Lymphocytes # 1.5 (1.0-4.8) k/uL Monocytes # 0.8 (0-1.0) k/uL Eosinophils # 0.2 (0-0.7) k/uL Basophils # 0.0 (0-0.2) k/uL D-Dimer (<0.60) mg/L FEU Sodium 135 L (137-145) mmol/L Potassium 4.1 (3.5-5.1) mmol/L Chloride 102 (98-107) mmol/L Carbon Dioxide 24 (22-30) mmol/L Anion Gap 9 mmol/L BUN 12 (9-20) mg/dL Creatinine 0.68 (0.66-1.25) mg/dL Est GFR (CKD-EPI)AfAm >90 (>60 ml/min/1.73 sqM) Est GFR (CKD-EPI)NonAf >90 (>60 ml/min/1.73 sqM) Glucose 104 H (74-99) mg/dL Calcium 8.6 (8.4-10.2) mg/dL Troponin I <0.012 (0.000-0.034) ng/mL 06/08/19 Range/Units 10:57 WBC (3.8-10.6) k/uL RBC (4.30-5.90) m/uL Hgb (13.0-17.5) gm/dL Hct (39.0-53.0) % MCV (80.0-100.0) fL MCH (25.0-35.0) pg MCHC (31.0-37.0) g/dL RDW (11.5-15.5) % Plt Count (150-450) k/uL Neutrophils % % Lymphocytes % % Monocytes % % Eosinophils % % Basophils % % Neutrophils # (1.3-7.7) k/uL Lymphocytes # (1.0-4.8) k/uL Monocytes # (0-1.0) k/uL Eosinophils # (0-0.7) k/uL Basophils # (0-0.2) k/uL D-Dimer 0.31 (<0.60) mg/L FEU Sodium (137-145) mmol/L Potassium (3.5-5.1) mmol/L Chloride (98-107) mmol/L Carbon Dioxide (22-30) mmol/L Anion Gap mmol/L BUN (9-20) mg/dL Creatinine (0.66-1.25) mg/dL Est GFR (CKD-EPI)AfAm (>60 ml/min/1.73 sqM) Est GFR (CKD-EPI)NonAf (>60 ml/min/1.73 sqM) Glucose (74-99) mg/dL Calcium (8.4-10.2) mg/dL Troponin I (0.000-0.034) ng/mL Disposition Clinical Impression: Chest pain Disposition: HOME SELF-CARE Condition: Good Instructions (If sedation given, give patient instructions): Chest Pain (ED) Additional Instructions: Today you were evaluated for symptoms consistent with upper respiratory infection. There is concern that perhaps your symptomatology may represent Covid 19. Your are stable for discharge, however it is instructed to to seek immediate medical attention especially if you develop worsening symptoms especially respiratory distress. In the meantime please remain in quarantine for 14 days. For any other questions please contact Mercedes for here in emergency department or [facility] at [phone] Is patient prescribed a controlled substance at d/c from ED?: No Referrals: Nonstaff,Physician [Primary Care Provider] - 1-2 days Time of Disposition: 12:01
[2019-06-08 11:12] LABS: Basophils % (A) 0 %; Eosinophils # (A) 0.2 k/uL (0-0.7); Eosinophils % (A) 2 %; HCT 42.6 % (39.0-53.0); HGB 14.5 gm/dL (13.0-17.5); Lymphocytes # (A) 1.5 k/uL (1.0-4.8); Lymphocytes % (A) 14 %; MCH 34.7 pg (25.0-35.0); MCHC 33.9 g/dL (31.0-37.0); MCV 102.3 fL (80.0-100.0); Monocytes # (A) 0.8 k/uL (0-1.0); Monocytes % (A) 8 %; Neutrophils # (A) 7.7 k/uL (1.3-7.7); Neutrophils % (A) 74 %; Platelet Count 156 k/uL (150-450); RBC 4.17 m/uL (4.30-5.90); RDW 11.8 % (11.5-15.5); WBC 10.4 k/uL (3.8-10.6)
[2019-06-08 11:23] LABS: African American GFR (CKD) >90 (>60 ml/min/1.73 sqM); Anion Gap 9 mmol/L; Blood Urea Nitrogen 12 mg/dL (9-20); Calcium 8.6 mg/dL (8.4-10.2); Carbon Dioxide 24 mmol/L (22-30); Chloride 102 mmol/L (98-107); Glucose 104 mg/dL (74-99); Non-African American GFR(CKD) >90 (>60 ml/min/1.73 sqM); Potassium 4.1 mmol/L (3.5-5.1); Sodium 135 mmol/L (137-145)
[2019-06-08 12:05] VITALS: BP 154/92; PULSE 71; RESP 16; TEMP 98
== END 2019-06-08 12:04 | disposition home or self-care (01) ==
LOC: EC 10:19
DX: R07.89 Other chest pain (principal); R06.02 Shortness of breath; R05 Cough; J34.89 Other specified disorders of nose and nasal sinuses; I25.119 Atherosclerotic heart disease of native coronary artery with unspecified angina pectoris; I25.2 Old myocardial infarction; Z95.1 Presence of aortocoronary bypass graft; Z95.5 Presence of coronary angioplasty implant and graft; F17.200 Nicotine dependence, unspecified, uncomplicated; Z79.82 Long term (current) use of aspirin; Z79.890 Hormone replacement therapy; Z79.899 Other long term (current) drug therapy
CPT/HCPCS: 36415; 71045; 80048; 84484; 85025; 85379; 93005; 99285